=== PATIENT | male | born 1965 | race Caucasian/White ===

== ENCOUNTER 2019-04-30 10:16 | Inpatient (IN) | payer BC ==
[2019-04-30] MEDS: SOD CHLORIDE 0.9% 100 ML (10:37)
[2019-04-30] MEDS: IOHEXOL 100 ML (10:38)
[2019-04-30 10:40] LABS: ADD MAN DIFF? NO
[2019-04-30 10:44] LABS: WHITE BLOOD COUNT 12.6 10^3/ul (4.8-10.8)
[2019-04-30 10:44] LABS: BASOPHIL # 0.1 10^3/ul (0.0-0.1); BASOPHILS % 0.5 % (0.0-2.0); EOSINOPHILS # 0.1 10^3/ul (0.0-0.5); EOSINOPHILS % 0.8 % (0.0-7.0); HEMATOCRIT 43.7 % (42.0-52.0); LYMPHOCYTES # 0.9 10^3/ul (0.8-2.9); LYMPHOCYTES % 7.5 % (15.0-51.0); MEAN CORPUSCULAR HEMOGLOBIN 30.1 pg (29.0-33.0); MEAN CORPUSCULAR HGB CONC 34.3 g/dl (32.0-37.0); MEAN CORPUSCULAR VOLUME 87.6 fl (82.0-101.0); MEAN PLATELET VOLUME 12.4 fl (7.4-10.4); MONOCYTE # 1.4 10^3/ul (0.3-0.9); MONOCYTES % 11.2 % (0.0-11.0); NEUTROPHILS % 79.6 % (39.0-77.0); PLATELET COUNT 123 10^3/UL (140-415); RED BLOOD COUNT 4.99 10^6/ul (4.70-6.10); RED CELL DISTRIBUTION WIDTH 12.7 % (11.5-14.5)
[2019-04-30 10:54] LABS: HEMOGLOBIN A1C 5.2 % (0-5.9)
[2019-04-30 10:58] LABS: ANION GAP 9 (5-13); BLOOD UREA NITROGEN 11 mg/dl (7-20); CALCIUM 8.8 mg/dl (8.4-10.2); CARBON DIOXIDE 24 mmol/L (21-31); CHLORIDE 107 mmol/L (97-110); CHOL/HDL RATIO 4.4 RATIO; CHOLESTEROL 110 mg/dl (100-200); CREATINE KINASE 54 IU/L (23-200); CREATININE 0.69 mg/dl (0.61-1.24); Estimated GFR > 60 mL/min (>60); GLUCOSE 91 mg/dl (70-220); HDL CHOLESTEROL 25 mg/dl (28-71); LDL CHOLESTEROL,CALCULATED 43 mg/dl; POTASSIUM 3.8 mmol/L (3.5-5.1); SODIUM 140 mmol/L (135-144); TRIGLYCERIDES 211 mg/dl (0-149)
[2019-04-30 11:00] LABS: ETHANOL < 10.0 mg/dl (0-0)
[2019-04-30 11:05] LABS: INR 1.11; PROTIME 14.4 Sec (11.9-14.9); PT RATIO 1.1
[2019-04-30 11:06] LABS: PARTIAL THROMBOPLASTIN TIME 31.2 Sec (23.0-35.0)
[2019-04-30 11:10] LABS: CK INDEX 1.6; CK-MB 0.86 ng/ml (0.0-2.4); TROPONIN-I < 0.012 ng/ml (0.000-0.120)
[2019-04-30] MEDS: ASPIRIN 81 MG TAB PO (11:16)
[2019-04-30] MEDS: SOD CHLORIDE 0.9% 500 ML IV (11:16)
[2019-04-30] MEDS ORDERED: ONDANSETRON 4 MG INJ IV ×2 (11:30→12:30)
[2019-04-30] MEDS ORDERED: ACETAMINOPHEN 325 MG TAB PO (11:30)
[2019-04-30] MEDS ORDERED: DOCUSATE SODIUM 100 MG CAP PO (12:30)
[2019-04-30] MEDS ORDERED: NACL 0.9% 3 ML SYG IV (12:30)
[2019-04-30 15:09] LABS: PLATELET COUNT 127 10^3/UL (140-415)
[2019-04-30 15:29] LABS: INR 1.05; PROTIME 13.8 Sec (11.9-14.9); PT RATIO 1.1
[2019-04-30 15:30] LABS: PARTIAL THROMBOPLASTIN TIME 31.1 Sec (23.0-35.0); THROMBIN TIME 15.6 SEC (13.8-19.1)
[2019-04-30] MEDS: ATORVASTATIN 80 MG TAB PO (15:50)
[2019-04-30 19:55] LABS: ADD UMIC NO; UR ASCORBIC ACID NEGATIVE (NEGATIVE); UR BILIRUBIN (Dip) NEGATIVE (NEGATIVE); UR BLOOD (Dip) NEGATIVE (NEGATIVE); UR CLARITY CLEAR (CLEAR); UR COLOR YELLOW (YELLOW); UR GLUCOSE (Dip) NEGATIVE (NEGATIVE); UR KETONES (Dip) NEGATIVE (NEGATIVE); UR LEUKOCYTE ESTERASE (Dip) NEGATIVE Leu/ul (NEGATIVE); UR NITRITE (Dip) NEGATIVE (NEGATIVE); UR SPECIFIC GRAVITY (Dip) 1.033 (1.003-1.030); UR TOTAL PROTEIN (Dip) NEGATIVE (NEGATIVE); UR UROBILINOGEN (Dip) NEGATIVE (NEGATIVE)
[2019-04-30 20:18] LABS: AMPHETAMINE/METHAMPHETAMINE Negative (NEGATIVE); BARBITURATES Negative (NEGATIVE); BENZODIAZEPINES Negative (NEGATIVE); CANNABINOIDS Negative (NEGATIVE); COCAINE Negative (NEGATIVE); OPIATES Negative (NEGATIVE)
[2019-04-30] MEDS: LORAZEPAM 2 MG INJ IV (22:10)
[2019-04-30] MEDS: FISH OIL 1,000 MG CAP PO (22:10)
[2019-05-01 06:40] LABS: ADD MAN DIFF? NO
[2019-05-01 06:47] LABS: WHITE BLOOD COUNT 12.7 10^3/ul (4.8-10.8)
[2019-05-01 06:47] LABS: BASOPHIL # 0.1 10^3/ul (0.0-0.1); BASOPHILS % 0.6 % (0.0-2.0); EOSINOPHILS # 0.3 10^3/ul (0.0-0.5); EOSINOPHILS % 2.4 % (0.0-7.0); HEMATOCRIT 46.1 % (42.0-52.0); HEMOGLOBIN 15.8 g/dl (14.0-18.0); LYMPHOCYTES # 2.1 10^3/ul (0.8-2.9); LYMPHOCYTES % 16.6 % (15.0-51.0); MEAN CORPUSCULAR HEMOGLOBIN 30.3 pg (29.0-33.0); MEAN CORPUSCULAR HGB CONC 34.3 g/dl (32.0-37.0); MEAN CORPUSCULAR VOLUME 88.5 fl (82.0-101.0); MEAN PLATELET VOLUME 12.8 fl (7.4-10.4); MONOCYTE # 1.4 10^3/ul (0.3-0.9); MONOCYTES % 11.4 % (0.0-11.0); NEUTROPHIL # 8.7 10^3/ul (1.6-7.5); NEUTROPHILS % 68.6 % (39.0-77.0); PLATELET COUNT 130 10^3/UL (140-415); RED BLOOD COUNT 5.21 10^6/ul (4.70-6.10); RED CELL DISTRIBUTION WIDTH 12.8 % (11.5-14.5)
[2019-05-01 07:09] LABS: ALANINE AMINOTRANSFERASE 20 IU/L (13-69); ALBUMIN 4.1 g/dl (3.3-4.9); ALBUMIN/GLOBULIN RATIO 1.64; ALKALINE PHOSPHATASE 76 IU/L (42-121); ANION GAP 11 (5-13); ASPARTATE AMINO TRANSFERASE 21 IU/L (15-46); BILIRUBIN,INDIRECT 1.3 mg/dl (0-1.1); BILIRUBIN,TOTAL 1.3 mg/dl (0.2-1.3); BLOOD UREA NITROGEN 11 mg/dl (7-20); CALCIUM 9.3 mg/dl (8.4-10.2); CARBON DIOXIDE 24 mmol/L (21-31); CHLORIDE 107 mmol/L (97-110); Estimated GFR > 60 mL/min (>60); GLUCOSE 120 mg/dl (70-220); MAGNESIUM 2.2 mg/dl (1.7-2.5); PHOSPHORUS 3.8 mg/dl (2.5-4.9); POTASSIUM 3.8 mmol/L (3.5-5.1); SODIUM 142 mmol/L (135-144); TOTAL PROTEIN 6.6 g/dl (6.1-8.1)
[2019-05-01] MEDS: FISH OIL 1,000 MG CAP PO ×2 (08:39→20:02)
[2019-05-01] MEDS: ASPIRIN (EC) 81 MG TAB PO (08:39)
[2019-05-01] MEDS: LISINOPRIL 20 MG TAB PO (08:40)
[2019-05-01] MEDS: AMLODIPINE 5 MG TAB PO (08:40)
[2019-05-01] MEDS: ENOXAPARIN 40 MG/0.4 ML SYG SC (08:54)
[2019-05-01] MEDS: NICOTINE (21 MG/24 HR) PATCH TRANSDERM (11:32)
[2019-05-01] MEDS: ATORVASTATIN 80 MG TAB PO (20:02)
[2019-05-02] MEDS: hydrALAzine 20 MG INJ IV (00:41)
[2019-05-02 06:22] LABS: ADD MAN DIFF? NO
[2019-05-02 06:31] LABS: WHITE BLOOD COUNT 12.6 10^3/ul (4.8-10.8)
[2019-05-02 06:31] LABS: BASOPHIL # 0.1 10^3/ul (0.0-0.1); BASOPHILS % 0.4 % (0.0-2.0); EOSINOPHILS # 0.2 10^3/ul (0.0-0.5); EOSINOPHILS % 1.6 % (0.0-7.0); HEMATOCRIT 46.7 % (42.0-52.0); HEMOGLOBIN 16.2 g/dl (14.0-18.0); LYMPHOCYTES # 1.7 10^3/ul (0.8-2.9); LYMPHOCYTES % 13.7 % (15.0-51.0); MEAN CORPUSCULAR HEMOGLOBIN 30.5 pg (29.0-33.0); MEAN CORPUSCULAR HGB CONC 34.7 g/dl (32.0-37.0); MEAN CORPUSCULAR VOLUME 87.8 fl (82.0-101.0); MEAN PLATELET VOLUME 12.7 fl (7.4-10.4); MONOCYTE # 1.4 10^3/ul (0.3-0.9); MONOCYTES % 11.1 % (0.0-11.0); NEUTROPHIL # 9.2 10^3/ul (1.6-7.5); NEUTROPHILS % 72.6 % (39.0-77.0); PLATELET COUNT 124 10^3/UL (140-415); RED BLOOD COUNT 5.32 10^6/ul (4.70-6.10); RED CELL DISTRIBUTION WIDTH 12.6 % (11.5-14.5)
[2019-05-02 07:10] LABS: ANION GAP 10 (5-13); BLOOD UREA NITROGEN 13 mg/dl (7-20); CARBON DIOXIDE 23 mmol/L (21-31); CHLORIDE 108 mmol/L (97-110); CREATININE 0.75 mg/dl (0.61-1.24); Estimated GFR > 60 mL/min (>60); GLUCOSE 124 mg/dl (70-220); POTASSIUM 3.5 mmol/L (3.5-5.1); SODIUM 141 mmol/L (135-144)
[2019-05-02] MEDS: FISH OIL 1,000 MG CAP PO ×2 (08:31→20:51)
[2019-05-02] MEDS: LISINOPRIL 20 MG TAB PO (08:32)
[2019-05-02] MEDS: AMLODIPINE 5 MG TAB PO (08:32)
[2019-05-02] MEDS: ASPIRIN (EC) 81 MG TAB PO (08:32)
[2019-05-02] MEDS: NICOTINE (21 MG/24 HR) PATCH TRANSDERM (08:32)
[2019-05-02] MEDS: ENOXAPARIN 40 MG/0.4 ML SYG SC (09:41)
[2019-05-02] MEDS: ATORVASTATIN 80 MG TAB PO (20:51)
[2019-05-03] MEDS: ASPIRIN (EC) 81 MG TAB PO (08:12)
[2019-05-03] MEDS: FISH OIL 1,000 MG CAP PO ×2 (08:13→21:06)
[2019-05-03] MEDS: AMLODIPINE 5 MG TAB PO (08:13)
[2019-05-03] MEDS: NICOTINE (21 MG/24 HR) PATCH TRANSDERM (08:14)
[2019-05-03] MEDS: LISINOPRIL 20 MG TAB PO (08:14)
[2019-05-03] MEDS: ACETAMINOPHEN 325 MG TAB PO (11:12)
[2019-05-03] MEDS: ATORVASTATIN 80 MG TAB PO (21:06)
[2019-05-04 06:19] LABS: ADD MAN DIFF? NO
[2019-05-04 06:24] LABS: WHITE BLOOD COUNT 15.4 10^3/ul (4.8-10.8)
[2019-05-04 06:24] LABS: ABNORMAL IP MESSAGE 1; BASOPHIL # 0.1 10^3/ul (0.0-0.1); BASOPHILS % 0.4 % (0.0-2.0); EOSINOPHILS # 0.3 10^3/ul (0.0-0.5); EOSINOPHILS % 2.2 % (0.0-7.0); HEMATOCRIT 46.1 % (42.0-52.0); HEMOGLOBIN 15.8 g/dl (14.0-18.0); LYMPHOCYTES % 13.1 % (15.0-51.0); MEAN CORPUSCULAR HEMOGLOBIN 30.7 pg (29.0-33.0); MEAN CORPUSCULAR HGB CONC 34.3 g/dl (32.0-37.0); MEAN CORPUSCULAR VOLUME 89.5 fl (82.0-101.0); MEAN PLATELET VOLUME 12.9 fl (7.4-10.4); MONOCYTE # 1.7 10^3/ul (0.3-0.9); MONOCYTES % 11.2 % (0.0-11.0); NEUTROPHIL # 11.2 10^3/ul (1.6-7.5); NEUTROPHILS % 72.6 % (39.0-77.0); PLATELET COUNT 131 10^3/UL (140-415); POSITIVE DIFF @See below; RED BLOOD COUNT 5.15 10^6/ul (4.70-6.10); RED CELL DISTRIBUTION WIDTH 12.7 % (11.5-14.5)
[2019-05-04 06:43] LABS: ANION GAP 12 (5-13); BLOOD UREA NITROGEN 17 mg/dl (7-20); CARBON DIOXIDE 20 mmol/L (21-31); CHLORIDE 108 mmol/L (97-110); CREATININE 0.79 mg/dl (0.61-1.24); Estimated GFR > 60 mL/min (>60); GLUCOSE 102 mg/dl (70-220); POTASSIUM 4.1 mmol/L (3.5-5.1); SODIUM 140 mmol/L (135-144)
[2019-05-04 06:45] LABS: INR 1.05; PROTIME 13.8 Sec (11.9-14.9); PT RATIO 1.1
[2019-05-04 06:46] LABS: PARTIAL THROMBOPLASTIN TIME 32.6 Sec (23.0-35.0)
[2019-05-04] MEDS: ASPIRIN (EC) 81 MG TAB PO (15:42)
[2019-05-04] MEDS: NICOTINE (21 MG/24 HR) PATCH TRANSDERM (15:42)
[2019-05-04] MEDS: AMLODIPINE 5 MG TAB PO (15:42)
[2019-05-04] MEDS: LISINOPRIL 20 MG TAB PO (15:42)
[2019-05-04] MEDS: FISH OIL 1,000 MG CAP PO ×2 (15:43→20:27)
[2019-05-04] MEDS: ATORVASTATIN 80 MG TAB PO (20:27)
[2019-05-04] MEDS: ACETAMINOPHEN 325 MG TAB PO (23:49)
[2019-05-05] MEDS: FISH OIL 1,000 MG CAP PO (08:17)
[2019-05-05] MEDS: LISINOPRIL 20 MG TAB PO (08:18)
[2019-05-05] MEDS: ASPIRIN (EC) 81 MG TAB PO (08:18)
[2019-05-05] MEDS: AMLODIPINE 5 MG TAB PO (08:18)
[2019-05-05] MEDS: NICOTINE (21 MG/24 HR) PATCH TRANSDERM (08:18)
== END 2019-05-05 16:27 | disposition home or self-care (01) | DRG 66 ==
LOC: E/R 10:16 → TEL 11:17
DX: I63.9 Cerebral infarction, unspecified (principal); D18.1 Lymphangioma, any site; D72.829 Elevated white blood cell count, unspecified; E78.5 Hyperlipidemia, unspecified; F10.20 Alcohol dependence, uncomplicated; F17.210 Nicotine dependence, cigarettes, uncomplicated; D69.59 Other secondary thrombocytopenia; Z98.890 Other specified postprocedural states; I11.0 Hypertensive heart disease with heart failure; I50.9 Heart failure, unspecified
CPT/HCPCS: 36415; 70450; 70496; 70498; 70551; 71045; 80048; 80053; 80061; 80307; 81003; 82550; 82553; 82962; 83036; 83735; 84100; 84484; 85025; 85049; 85610; 85670; 85730; 92610; 93005; 93306; 93312; 93325; 95819; 97110; 97116; 97162; 97166; 99285-25

== ENCOUNTER 2019-05-19 20:20 | Inpatient (IN) | payer BC ==
[2019-05-19 21:50] LABS: ADD MAN DIFF? NO
[2019-05-19 21:52] LABS: WHITE BLOOD COUNT 12.6 10^3/ul (4.8-10.8)
[2019-05-19 21:52] LABS: BASOPHIL # 0.1 10^3/ul (0.0-0.1); BASOPHILS % 0.6 % (0.0-2.0); EOSINOPHILS # 0.4 10^3/ul (0.0-0.5); EOSINOPHILS % 2.9 % (0.0-7.0); HEMATOCRIT 41.7 % (42.0-52.0); HEMOGLOBIN 13.9 g/dl (14.0-18.0); LYMPHOCYTES # 2.8 10^3/ul (0.8-2.9); MEAN CORPUSCULAR HEMOGLOBIN 29.9 pg (29.0-33.0); MEAN CORPUSCULAR HGB CONC 33.3 g/dl (32.0-37.0); MEAN CORPUSCULAR VOLUME 89.7 fl (82.0-101.0); MEAN PLATELET VOLUME 11.9 fl (7.4-10.4); MONOCYTE # 1.3 10^3/ul (0.3-0.9); NEUTROPHIL # 8.1 10^3/ul (1.6-7.5); NEUTROPHILS % 64.3 % (39.0-77.0); PLATELET COUNT 154 10^3/UL (140-415); RED BLOOD COUNT 4.65 10^6/ul (4.70-6.10); RED CELL DISTRIBUTION WIDTH 11.9 % (11.5-14.5)
[2019-05-19 22:14] LABS: ALANINE AMINOTRANSFERASE 49 IU/L (13-69); ALBUMIN 4.2 g/dl (3.3-4.9); ALKALINE PHOSPHATASE 76 IU/L (42-121); ANION GAP 11 (5-13); ASPARTATE AMINO TRANSFERASE 31 IU/L (15-46); BILIRUBIN,INDIRECT 0.5 mg/dl (0-1.1); BILIRUBIN,TOTAL 0.5 mg/dl (0.2-1.3); BLOOD UREA NITROGEN 13 mg/dl (7-20); CALCIUM 9.2 mg/dl (8.4-10.2); CARBON DIOXIDE 25 mmol/L (21-31); CHLORIDE 105 mmol/L (97-110); CREATININE 0.77 mg/dl (0.61-1.24); Estimated GFR > 60 mL/min (>60); GLUCOSE 106 mg/dl (70-220); LIPASE 149 U/L (23-300); POTASSIUM 3.9 mmol/L (3.5-5.1); SODIUM 141 mmol/L (135-144)
[2019-05-19] MEDS: SOD CHLORIDE 0.9% 500 ML IV (22:18)
[2019-05-19 22:25] LABS: TROPONIN-I < 0.012 ng/ml (0.000-0.120)
[2019-05-19 23:30] LABS: ADD UMIC NO; UR ASCORBIC ACID NEGATIVE (NEGATIVE); UR BILIRUBIN (Dip) NEGATIVE (NEGATIVE); UR BLOOD (Dip) NEGATIVE (NEGATIVE); UR CLARITY CLEAR (CLEAR); UR COLOR STRAW (YELLOW); UR GLUCOSE (Dip) NEGATIVE (NEGATIVE); UR KETONES (Dip) NEGATIVE (NEGATIVE); UR LEUKOCYTE ESTERASE (Dip) NEGATIVE Leu/ul (NEGATIVE); UR NITRITE (Dip) NEGATIVE (NEGATIVE); UR SPECIFIC GRAVITY (Dip) 1.006 (1.003-1.030); UR TOTAL PROTEIN (Dip) NEGATIVE (NEGATIVE); UR UROBILINOGEN (Dip) NEGATIVE (NEGATIVE)
[2019-05-20] MEDS ORDERED: ACETAMINOPHEN 325 MG TAB PO ×2 (01:00→01:30)
[2019-05-20] MEDS ORDERED: ONDANSETRON 4 MG INJ IV ×2 (01:00→01:30)
[2019-05-20] MEDS ORDERED: DOCUSATE SODIUM 100 MG CAP PO (01:30)
[2019-05-20] MEDS ORDERED: NACL 0.9% 3 ML SYG IV (01:30)
[2019-05-20] MEDS: hydrALAzine 20 MG INJ IV (03:29)
[2019-05-20 06:39] LABS: ADD MAN DIFF? NO
[2019-05-20 06:43] LABS: BASOPHIL # 0.1 10^3/ul (0.0-0.1); BASOPHILS % 0.7 % (0.0-2.0); EOSINOPHILS # 0.4 10^3/ul (0.0-0.5); EOSINOPHILS % 2.5 % (0.0-7.0); HEMATOCRIT 41.9 % (42.0-52.0); HEMOGLOBIN 14.2 g/dl (14.0-18.0); LYMPHOCYTES # 2.8 10^3/ul (0.8-2.9); LYMPHOCYTES % 18.5 % (15.0-51.0); MEAN CORPUSCULAR HGB CONC 33.9 g/dl (32.0-37.0); MEAN CORPUSCULAR VOLUME 88.6 fl (82.0-101.0); MEAN PLATELET VOLUME 12.2 fl (7.4-10.4); MONOCYTE # 1.4 10^3/ul (0.3-0.9); MONOCYTES % 9.5 % (0.0-11.0); NEUTROPHIL # 10.2 10^3/ul (1.6-7.5); NEUTROPHILS % 68.5 % (39.0-77.0); PLATELET COUNT 153 10^3/UL (140-415); RED BLOOD COUNT 4.73 10^6/ul (4.70-6.10); RED CELL DISTRIBUTION WIDTH 11.9 % (11.5-14.5)
[2019-05-20 06:43] LABS: WHITE BLOOD COUNT 14.9 10^3/ul (4.8-10.8)
[2019-05-20 07:10] LABS: ALANINE AMINOTRANSFERASE 53 IU/L (13-69); ALBUMIN 4.1 g/dl (3.3-4.9); ALBUMIN/GLOBULIN RATIO 1.46; ALKALINE PHOSPHATASE 73 IU/L (42-121); ANION GAP 9 (5-13); ASPARTATE AMINO TRANSFERASE 36 IU/L (15-46); BILIRUBIN,INDIRECT 0.9 mg/dl (0-1.1); BILIRUBIN,TOTAL 0.9 mg/dl (0.2-1.3); BLOOD UREA NITROGEN 9 mg/dl (7-20); CALCIUM 9.4 mg/dl (8.4-10.2); CARBON DIOXIDE 28 mmol/L (21-31); CHLORIDE 107 mmol/L (97-110); CREATINE KINASE 58 IU/L (23-200); CREATININE 0.74 mg/dl (0.61-1.24); Estimated GFR > 60 mL/min (>60); GLUCOSE 107 mg/dl (70-220); SODIUM 144 mmol/L (135-144); TOTAL PROTEIN 6.9 g/dl (6.1-8.1)
[2019-05-20 07:16] LABS: TROPONIN-I < 0.012 ng/ml (0.000-0.120)
[2019-05-20] MEDS: LISINOPRIL 20 MG TAB PO (08:27)
[2019-05-20] MEDS: FISH OIL 1,000 MG CAP PO ×2 (08:27→20:02)
[2019-05-20] MEDS: POTASSIUM CHLORIDE (SR) 8 MEQ CAP PO (08:27)
[2019-05-20] MEDS: AMLODIPINE 5 MG TAB PO (08:27)
[2019-05-20] MEDS: ASPIRIN (EC) 81 MG TAB PO (08:27)
[2019-05-20] MEDS: ATORVASTATIN 80 MG TAB PO (20:02)
[2019-05-20 23:49] LABS: AMPHETAMINE/METHAMPHETAMINE Negative (NEGATIVE); BARBITURATES Negative (NEGATIVE); BENZODIAZEPINES Negative (NEGATIVE); CANNABINOIDS Negative (NEGATIVE); COCAINE Negative (NEGATIVE); OPIATES Negative (NEGATIVE)
[2019-05-21] MEDS: ZOLPIDEM 5 MG TAB PO ×2 (01:19→23:12)
[2019-05-21 07:03] LABS: ADD MAN DIFF? NO
[2019-05-21 07:10] LABS: BASOPHIL # 0.1 10^3/ul (0.0-0.1); BASOPHILS % 0.6 % (0.0-2.0); EOSINOPHILS # 0.3 10^3/ul (0.0-0.5); EOSINOPHILS % 2.1 % (0.0-7.0); HEMATOCRIT 44.6 % (42.0-52.0); HEMOGLOBIN 14.9 g/dl (14.0-18.0); LYMPHOCYTES # 2.4 10^3/ul (0.8-2.9); LYMPHOCYTES % 19.2 % (15.0-51.0); MEAN CORPUSCULAR HEMOGLOBIN 29.6 pg (29.0-33.0); MEAN CORPUSCULAR HGB CONC 33.4 g/dl (32.0-37.0); MEAN CORPUSCULAR VOLUME 88.7 fl (82.0-101.0); MEAN PLATELET VOLUME 12.2 fl (7.4-10.4); MONOCYTE # 1.3 10^3/ul (0.3-0.9); MONOCYTES % 10.1 % (0.0-11.0); NEUTROPHIL # 8.6 10^3/ul (1.6-7.5); NEUTROPHILS % 67.6 % (39.0-77.0); PLATELET COUNT 162 10^3/UL (140-415); RED BLOOD COUNT 5.03 10^6/ul (4.70-6.10)
[2019-05-21 07:10] LABS: WHITE BLOOD COUNT 12.7 10^3/ul (4.8-10.8)
[2019-05-21 07:38] LABS: ANION GAP 11 (5-13); BLOOD UREA NITROGEN 12 mg/dl (7-20); CALCIUM 9.5 mg/dl (8.4-10.2); CARBON DIOXIDE 24 mmol/L (21-31); CHLORIDE 107 mmol/L (97-110); CREATININE 0.76 mg/dl (0.61-1.24); Estimated GFR > 60 mL/min (>60); GLUCOSE 116 mg/dl (70-220); MAGNESIUM 2.2 mg/dl (1.7-2.5); PHOSPHORUS 4.3 mg/dl (2.5-4.9); SODIUM 142 mmol/L (135-144)
[2019-05-21] MEDS: FISH OIL 1,000 MG CAP PO ×2 (09:45→20:24)
[2019-05-21] MEDS: POTASSIUM CHLORIDE (SR) 8 MEQ CAP PO (09:45)
[2019-05-21] MEDS: LISINOPRIL 20 MG TAB PO (09:45)
[2019-05-21] MEDS: AMLODIPINE 5 MG TAB PO ×2 (09:45→12:49)
[2019-05-21] MEDS: ASPIRIN (EC) 81 MG TAB PO (09:45)
[2019-05-21] MEDS: GABAPENTIN 100 MG CAP PO ×2 (12:49→20:24)
[2019-05-21] MEDS: NICOTINE (14 MG/24 HR) PATCH TRANSDERM (12:49)
[2019-05-21] MEDS: ENOXAPARIN 40 MG/0.4 ML SYG SC (13:01)
[2019-05-21 15:59] LABS: HIV 1&2 ANTIBODY NEGATIVE (NEGATIVE)
[2019-05-21] MEDS: ATORVASTATIN 80 MG TAB PO (20:24)
[2019-05-22] MEDS: LISINOPRIL 20 MG TAB PO (08:56)
[2019-05-22] MEDS: FISH OIL 1,000 MG CAP PO ×2 (08:56→20:06)
[2019-05-22] MEDS: GABAPENTIN 100 MG CAP PO ×3 (08:57→20:06)
[2019-05-22] MEDS: POTASSIUM CHLORIDE (SR) 8 MEQ CAP PO (08:57)
[2019-05-22] MEDS: ASPIRIN (EC) 81 MG TAB PO (08:57)
[2019-05-22] MEDS: AMLODIPINE 10 MG TAB PO (08:57)
[2019-05-22] MEDS: NICOTINE (14 MG/24 HR) PATCH TRANSDERM (09:00)
[2019-05-22] MEDS: ENOXAPARIN 40 MG/0.4 ML SYG SC (09:12)
[2019-05-22 13:55] LABS: HEPATITIS B SURFACE ANTIGEN NEGATIVE (NEGATIVE)
[2019-05-22] MEDS: THIAMINE 100 MG TAB PO (14:02)
[2019-05-22 14:07] LABS: ANA SCREEN NEGATIVE (NEGATIVE)
[2019-05-22 14:12] LABS: HEPATITIS C VIRAL ANTIBODY NEGATIVE (NEGATIVE)
[2019-05-22] MEDS: THIAMINE 200 MG INJ IM (14:25)
[2019-05-22] MEDS: ATORVASTATIN 80 MG TAB PO (20:06)
[2019-05-22] MEDS: ZOLPIDEM 5 MG TAB PO (23:16)
[2019-05-23 07:13] LABS: ANION GAP 9 (5-13); BLOOD UREA NITROGEN 15 mg/dl (7-20); CALCIUM 9.6 mg/dl (8.4-10.2); CARBON DIOXIDE 27 mmol/L (21-31); CHLORIDE 105 mmol/L (97-110); CREATININE 0.87 mg/dl (0.61-1.24); Estimated GFR > 60 mL/min (>60); GLUCOSE 122 mg/dl (70-220); POTASSIUM 4.5 mmol/L (3.5-5.1); SODIUM 141 mmol/L (135-144)
[2019-05-23] MEDS: ASPIRIN (EC) 81 MG TAB PO (08:15)
[2019-05-23] MEDS: FISH OIL 1,000 MG CAP PO (08:15)
[2019-05-23] MEDS: THIAMINE 100 MG TAB PO (08:15)
[2019-05-23] MEDS: LISINOPRIL 20 MG TAB PO (08:16)
[2019-05-23] MEDS: AMLODIPINE 10 MG TAB PO (08:16)
[2019-05-23] MEDS: GABAPENTIN 100 MG CAP PO ×2 (08:17→12:37)
[2019-05-23] MEDS: POTASSIUM CHLORIDE (SR) 8 MEQ CAP PO (08:17)
[2019-05-23] MEDS: NICOTINE (14 MG/24 HR) PATCH TRANSDERM (08:19)
[2019-05-23] MEDS: ENOXAPARIN 40 MG/0.4 ML SYG SC (08:25)
[2019-05-23 15:10] LABS: RAPID PLASMA REAGIN NONREACTIVE (NR)
[2019-05-24 12:07] LABS: HEXAGONAL PHASE CONFIRMATION NEGATIVE (NEGATIVE)
[2019-05-24 20:02] LABS: CARDIOLIPIN AB - IGA <11 APL; CARDIOLIPIN AB - IGG <14 GPL; CARDIOLIPIN AB - IGM <12 MPL
[2019-05-25 16:01] LABS: ALDOSTERONE 4 ng/dL
== END 2019-05-23 15:32 | disposition home or self-care (01) | DRG 305 ==
LOC: E/R 20:20 → TEL 05-20 00:49
DX: I10 Essential (primary) hypertension (principal); E78.5 Hyperlipidemia, unspecified; F17.200 Nicotine dependence, unspecified, uncomplicated; G62.9 Polyneuropathy, unspecified; R53.1 Weakness; F10.10 Alcohol abuse, uncomplicated; Z86.73 Personal history of transient ischemic attack (TIA), and cerebral infarction without residual deficits
CPT/HCPCS: 36415; 70450; 70551; 80048; 80053; 80307; 81003; 81240; 82088; 82306; 82550; 82553; 82607; 82652; 83690; 83735; 83890; 84100; 84244; 84443; 84484; 85025; 85300; 85302; 85305; 85613; 86038; 86147; 86592; 86703; 86803; 87340; 93005; 97161; 99285-25